=== PATIENT | female | born 1940 | race Caucasian/White ===

== ENCOUNTER → 2017-02-09 | Outpatient (CLI) | payer MEDICARE, BC ==
[~2017-02-09] MED LIST: ALPHA LIPOIC300 MG PO; ASPIRIN 81M81 MG/TA2 PO; CO Q-1010 MG PO; GLUCOPHAGE500 MG/TAB PO; MASON NATURAL600 MG PO; VINPOCETINE PO; VITAMINC1000TA PO
== END ==
LOC: MC.RAD 08:40
DX: Z12.31 Encounter for screening mammogram for malignant neoplasm of breast (principal)

== ENCOUNTER → 2017-06-27 | Outpatient (CLI) | payer MEDICARE, BC | LOC: COL.RAD 09:37 | DX: M48.061 Spinal stenosis, lumbar region without neurogenic claudication (principal); M43.16 Spondylolisthesis, lumbar region; M47.817 Spondylosis without myelopathy or radiculopathy, lumbosacral region; R60.0 Localized edema; M54.5 Low back pain; G89.29 Other chronic pain ==

== ENCOUNTER 2017-08-19 15:00 | Outpatient (RCR) | payer MEDICARE, BC | END 2017-10-24 | disposition home or self-care (01) | LOC: MKS.ESL.PT | DX: M47.894 Other spondylosis, thoracic region (principal); M47.896 Other spondylosis, lumbar region | CPT/HCPCS: G0283-GP; G8978-GP; G8979-GP; G8980-GP ==

== ENCOUNTER → 2017-10-21 | Outpatient (CLI) | payer MEDICARE, BC | LOC: MHCPAIN 10:38 | DX: G89.29 Other chronic pain (principal); M47.817 Spondylosis without myelopathy or radiculopathy, lumbosacral region; M53.3 Sacrococcygeal disorders, not elsewhere classified; M47.814 Spondylosis without myelopathy or radiculopathy, thoracic region | CPT/HCPCS: G0463 ==

== ENCOUNTER → 2017-10-26 | Outpatient (CLI) | payer MEDICARE, BC | LOC: MHCPAIN 13:53 | DX: M47.817 Spondylosis without myelopathy or radiculopathy, lumbosacral region (principal) | CPT/HCPCS: J1040; J3010; Q9967 ==

== ENCOUNTER → 2017-11-11 | Outpatient (CLI) | payer MEDICARE, BC | LOC: MHCPAIN 09:40 | DX: G89.29 Other chronic pain (principal); M47.817 Spondylosis without myelopathy or radiculopathy, lumbosacral region; M48.061 Spinal stenosis, lumbar region without neurogenic claudication | CPT/HCPCS: G0463 ==

== ENCOUNTER → 2018-03-24 | Outpatient (CLI) | payer MEDICARE, BC | LOC: MC.RAD 13:23 | DX: Z12.31 Encounter for screening mammogram for malignant neoplasm of breast (principal) ==

== ENCOUNTER → 2019-04-13 | Outpatient (CLI) | payer MEDICARE, BC | LOC: MC.RAD 10:39 | DX: Z12.31 Encounter for screening mammogram for malignant neoplasm of breast (principal) ==

== ENCOUNTER 2019-09-25 06:56 | Day surgery (SDC) | payer MEDICARE, BC ==
[~2019-09-25] VITALS: Ht 160 cm; Wt 64.5 kg
[2019-09-25] MEDS ORDERED: GLUCOPHAGE500 MG/TAB PO (07:33)
[2019-09-25] MEDS ORDERED: CENTRUM SILVER1 CTB PO (07:34)
[2019-09-25] MEDS ORDERED: ALEVE 220MG220 MG PO (07:35)
[2019-09-25] MEDS ORDERED: OMEGA-3 1000 MG1 CAP PO (07:36)
[2019-09-25 07:48] VITALS: BP 141/87; PULSE 88; TEMP 97.5
[2019-09-25 09:05] VITALS: BP 108/79; PULSE 80; TEMP 97.7
--- NOTE | 2019-09-25 09:05 | NUR ---
Patient arrives back to [facility] drowsy, ambulates from cart to chair with 2 person assist. Patient monitor applied, vitals stable. Patient given muffin and coffee. Patient's son at chair side.
[2019-09-25 09:20] VITALS: BP 158/110; PULSE 81
--- NOTE | 2019-09-25 09:25 | NUR ---
Dr Ramos into see patient at this time to go over procedure results.
[2019-09-25 09:35] VITALS: BP 128/72; PULSE 80
--- NOTE | 2019-09-25 09:40 | NUR ---
Dismissal instructions gone over with patient. Patient verbalizes understanding and all questions answered.
--- NOTE | 2019-09-25 09:50 | NUR ---
Patient dismissed to patient enterance to private vehicle her son is driving per wheelchair without any complications. Patient and son leave thanking staff for services.
== END 2019-09-25 09:50 | disposition home or self-care (01) ==
LOC: SDCO 06:56
DX: D12.4 Benign neoplasm of descending colon (principal); K57.30 Diverticulosis of large intestine without perforation or abscess without bleeding; K64.0 First degree hemorrhoids; E11.9 Type 2 diabetes mellitus without complications; G47.33 Obstructive sleep apnea (adult) (pediatric); M19.90 Unspecified osteoarthritis, unspecified site; I10 Essential (primary) hypertension; Z86.010 Personal history of colon polyps; Z79.84 Long term (current) use of oral hypoglycemic drugs
CPT/HCPCS: J2405; J2704; J7030

== ENCOUNTER → 2020-03-27 | Outpatient (CLI) | payer MEDICARE, BC ==
[~2020-03-27] MED LIST changes: +ALEVE 220MG220 MG PO; +CENTRUM SILVER1 CTB PO; +CEPHALEXIN500 M1 PO; +NORCO 325 MG-51 TAB PO; +OMEGA-3 1000 MG1 CAP PO
== END ==
LOC: COL.RAD 13:27
DX: M25.552 Pain in left hip (principal)
CPT/HCPCS: J3301; Q9967

== ENCOUNTER 2020-04-02 18:16 | Emergency (ER) | payer MEDICARE, BC ==
[~2020-04-02] VITALS: Ht 160 cm; Wt 68.2 kg
[~2020-04-02 18:16] MED LIST changes: -CEPHALEXIN500 M1 PO; -NORCO 325 MG-51 TAB PO
[2020-04-02 18:23] VITALS: TEMP 99.2
[2020-04-02 21:11] LABS: MUCOUS Present /lpf; PH 5 (5-8); SQUAMOUS EPITHELIAL 0-2 /hpf; URINE APPEARANCE Hazy; URINE BACTERIA None Seen /hpf; URINE BILIRUBIN Negative (NEGATIVE); URINE BLOOD Negative (NEGATIVE); URINE COLOR Yellow; URINE GLUCOSE Negative (NEGATIVE); URINE KETONE Negative (NEGATIVE); URINE LEUKOCYTE ESTERASE 2+ (NEGATIVE); URINE NITRATE Negative (NEGATIVE); URINE PROTEIN(semi-quant) 1+ (NEGATIVE); URINE RBC 0-2 /hpf; URINE UROBILINOGEN Negative (NEGATIVE); URINE WBC 20-50 /hpf
[2020-04-02 21:31] LABS: COLLECTION METHOD CLEAN CATCH
[2020-04-02 22:07] LABS: BASO % 0.2 % (0.0-2.0); EOS # 0.1 (0.0-0.7); EOS % 0.4 % (0-4.0); GRAN # 12.8 (1.4-6.5); GRAN % 84.4 % (42.2-75.2); HEMATOCRIT 43.4 % (37.0-47.0); HEMOGLOBIN 14.5 g/dl (12.5-16.0); LYMPH # 1.3 (1.2-3.4); LYMPH % 8.6 % (20.0-51.0); MEAN CELL VOLUME 86 fl (80.0-100.0); MEAN CORPUSCULAR HEMOGLOBIN 29 pg (27.0-31.0); MEAN CORPUSCULAR HGB CONC 33 g/dl (33.0-37.0); MEAN PLATELET VOLUME 10.1 fl (7.4-10.4); MONO # 0.9 (0.1-0.6); PLATELET COUNT 240 K/mm3 (130-400); RED BLOOD COUNT 5.07 M/mm3 (4.10-5.30); REDCELL DISTRIBUTION WIDTH-CV 13.5 % (11.5-14.5)
[2020-04-02 22:13] LABS: ALBUMIN 3.8 gm/dL (3.5-5.0); CALCIUM 9.6 mg/dL (8.4-10.2); CREATININE, serum 0.78 (0.52-1.25); POTASSIUM 3.9 mmol/L (3.4-5.0)
[2020-04-02] MEDS ORDERED: NORCO 325 MG-51 TAB PO (22:25)
[2020-04-02] MEDS ORDERED: CEPHALEXIN500 M1 PO (22:25)
[2020-04-02 23:12] VITALS: BP 153/89; PULSE 76
== END 2020-04-02 23:12 | disposition home or self-care (01) ==
LOC: COL.ER 18:16
PROVIDERS: Emergency Medicine
DX: M25.552 Pain in left hip (principal); N39.0 Urinary tract infection, site not specified; G89.29 Other chronic pain; M54.5 Low back pain; E11.9 Type 2 diabetes mellitus without complications; Z79.84 Long term (current) use of oral hypoglycemic drugs
CPT/HCPCS: J0696

== ENCOUNTER → 2020-06-16 | Outpatient (CLI) | payer MEDICARE, BC ==
[~2020-06-16] MED LIST changes: +CEPHALEXIN500 M1 PO; +NORCO 325 MG-51 TAB PO
== END ==
LOC: COL.RAD 10:30
DX: R90.82 White matter disease, unspecified (principal); R41.9 Unspecified symptoms and signs involving cognitive functions and awareness
CPT/HCPCS: A9585

== ENCOUNTER 2021-03-05 13:30 | Outpatient (RCR) | payer OTHER, BC | END 2021-03-09 | disposition home or self-care (01) | LOC: MKS.ESL.PT | DX: I63.9 Cerebral infarction, unspecified (principal) ==

== ENCOUNTER → 2021-04-16 | Outpatient (CLI) | payer MEDICARE, BC | LOC: MC.RAD 11:40 | DX: Z12.31 Encounter for screening mammogram for malignant neoplasm of breast (principal) ==

== ENCOUNTER 2021-04-24 09:45 | Outpatient (RCR) | payer MEDICARE, BC | END 2021-06-16 | disposition home or self-care (01) | LOC: MKS.ESL.PT | DX: I63.9 Cerebral infarction, unspecified (principal) ==

== ENCOUNTER 2021-07-27 12:59 | Emergency (ER) | payer MEDICARE, BC ==
[~2021-07-27] VITALS: Ht 160 cm; Wt 68.2 kg
[2021-07-27 13:00] VITALS: TEMP 97.8
[2021-07-27 13:40] LABS: BASO % 0.4 % (0.0-2.0); EOS # 0.1 K/mm3 (0.0-0.7); GRAN # 7.3 K/mm3 (1.4-6.5); GRAN % 77.1 % (42.2-75.2); HEMATOCRIT 42.4 % (37.0-47.0); HEMOGLOBIN 14.4 g/dl (12.5-16.0); LYMPH # 1.4 K/mm3 (1.2-3.4); LYMPH % 14.3 % (20.0-51.0); MEAN CELL VOLUME 87 fl (80.0-100.0); MEAN CORPUSCULAR HEMOGLOBIN 29 pg (27.0-31.0); MEAN CORPUSCULAR HGB CONC 34 g/dl (33.0-37.0); MEAN PLATELET VOLUME 10.1 fl (7.4-10.4); MONO # 0.7 K/mm3 (0.1-0.6); PLATELET COUNT 218 K/mm3 (130-400); RED BLOOD COUNT 4.89 M/mm3 (4.10-5.30); REDCELL DISTRIBUTION WIDTH-CV 13.3 % (11.5-14.5)
[2021-07-27 14:07] LABS: ALANINE AMINOTRANSFERASE 28 U/L (0-55); ALKALINE PHOSPHATASE 74 U/L (40-150); ANION GAP 9 mmol/L (7-16); AST,SGOT 22 U/L (5-34); BILIRUBIN,TOTAL 0.8 mg/dL (0.2-1.2); BLOOD UREA NITROGEN 12 mg/dL (10-20); CALCIUM 10.1 mg/dL (8.4-10.2); CARBON DIOXIDE 22 mmol/L (23-31); CHLORIDE 104 mmol/L (98-107); GLUCOSE 240 mg/dL (70-99); LIPASE 45 U/L (8-78); POTASSIUM 4.2 mmol/L (3.5-4.5); SODIUM 135 mmol/L (136-145); TOTAL PROTEIN 7.2 gm/dL (6.2-8.1)
[2021-07-27 14:24] LABS: COLLECTION METHOD CLEAN CATCH
[2021-07-27 14:29] LABS: TROPONIN-I < 0.010 ng/mL (0.00-0.033); TSH w REFLEX 1.815 uIU/mL (0.350-4.940)
[2021-07-27 14:41] LABS: MUCOUS Present /lpf; PH 6 (5-8); SQUAMOUS EPITHELIAL 0-2 /hpf; URINE APPEARANCE Hazy; URINE BACTERIA Many /hpf; URINE BILIRUBIN Negative (NEGATIVE); URINE BLOOD Negative (NEGATIVE); URINE COLOR Yellow; URINE GLUCOSE 1+ (NEGATIVE); URINE KETONE Negative (NEGATIVE); URINE LEUKOCYTE ESTERASE 3+ (NEGATIVE); URINE NITRATE Negative (NEGATIVE); URINE PROTEIN(semi-quant) Negative (NEGATIVE); URINE UROBILINOGEN Negative (NEGATIVE)
[2021-07-27] MEDS ORDERED: CEPHALEXIN500 M1 PO (15:08)
[2021-07-27 15:34] VITALS: BP 155/92; PULSE 87
== END 2021-07-27 15:34 | disposition home or self-care (01) ==
LOC: COL.ER 12:59
PROVIDERS: Emergency Medicine
DX: E11.65 Type 2 diabetes mellitus with hyperglycemia (principal); N39.0 Urinary tract infection, site not specified; I10 Essential (primary) hypertension; Z79.84 Long term (current) use of oral hypoglycemic drugs; Z20.822 Contact with and (suspected) exposure to COVID-19
CPT/HCPCS: J7030

== ENCOUNTER → 2021-12-07 | Outpatient (CLI) | payer MEDICARE, BC ==
[~2021-12-07] VITALS: Ht 160 cm; Wt 67.0 kg
[~2021-12-07] MED LIST changes: +COLACE 100100 MG/CAP PO; +COZAAR 25MG25 MG/TAB PO; +CRANBERRY500 M3 PO; +GLUCOPHAGE XR750 MG PO; +LIPITOR20 MG PO; +NEURIVA PLUS B1 EACH PO
[2021-12-07 12:05] VITALS: BP 106/68; PULSE 73; TEMP 98
[2021-12-07 13:10] VITALS: BP 129/84; PULSE 83
== END ==
LOC: COL.RAD 11:50
DX: M48.062 Spinal stenosis, lumbar region with neurogenic claudication (principal); M54.16 Radiculopathy, lumbar region
CPT/HCPCS: J3301

== ENCOUNTER → 2021-12-15 | Outpatient (CLI) | payer MEDICARE, BC | LOC: COL.RAD 16:48 | DX: M51.16 Intervertebral disc disorders with radiculopathy, lumbar region (principal); M47.26 Other spondylosis with radiculopathy, lumbar region; M41.86 Other forms of scoliosis, lumbar region ==

== ENCOUNTER → 2021-12-21 | Outpatient (CLI) | payer MEDICARE, BC ==
[~2021-12-21] VITALS: Ht 160 cm; Wt 65.5 kg
[2021-12-21 12:23] VITALS: BP 121/72; PULSE 76; TEMP 98.2
[2021-12-21 13:37] VITALS: BP 140/82; PULSE 70
== END ==
LOC: COL.RAD 12:00
DX: M48.062 Spinal stenosis, lumbar region with neurogenic claudication (principal)
CPT/HCPCS: J3301